=== PATIENT | male | born 1955 ===

== ENCOUNTER 2020-12-12 11:37 | Outpatient (REF) | payer MEDICARE, SELFPAY | END 2020-12-12 11:38 | disposition home or self-care (01) | LOC: HO.SCI 11:37 | DX: Z13.89 Encounter for screening for other disorder (principal) ==

== ENCOUNTER 2020-12-25 12:36 | Outpatient (REF) | payer MEDICARE, SELFPAY ==
--- NOTE | 2020-12-25 12:39 | CT_ITS ---
EXAMINATION: CT HEAD WITHOUT CONTRAST CLINICAL INFORMATION: Headaches. COMPARISON: None TECHNIQUE: Contiguous axial imaging was performed from the skull base to vertex without intravenous administration of contrast. This CT examination was performed using dose optimization techniques as appropriate, variously including the following: *Automated exposure control *Adjustment of mA and/or kV according to patient size (this includes techniques or standardized protocols for targeted exams where dose is matched to indication/reason for exam; i.e. extremities or head) *Use of iterative reconstruction technique DLP: 866 mGy-cm FINDINGS: There is no evidence of acute intracranial hemorrhage or territorial infarction. There is a small lacunar infarct seen along anterior left external capsule. No abnormal mass effect or midline shift is seen. Reyna to white matter differentiation is well preserved. No extra-axial fluid collections are identified. The ventricles are normal in size. There is midline cavum septum pellucidum, normal variation. There is no abnormal attenuation within the brain parenchyma. The osseous structures and soft tissues are normal. There is moderate polyp or retention cyst left maxillary sinus minimal mucoperiosteal thickening bilateral maxillary ethmoid, right frontal sinuses. The mastoid sinuses are well aerated and clear. CT/CT head/brain wo con IMPRESSION: No acute intracranial process seen. Bilateral chronic frontal, ethmoid and maxillary sinus inflammatory changes.
== END 2020-12-25 12:37 | disposition home or self-care (01) ==
LOC: HO.CT 12:36
PROVIDERS: Visit Provider Psychiatry & Neurology Neurology
DX: G31.84 Mild cognitive impairment of uncertain or unknown etiology (principal)
CPT/HCPCS: 70450